=== PATIENT | male | born 1950 | race Caucasian/White ===

== ENCOUNTER 2025-03-08 13:06 | Outpatient (CLI) | payer BC ==
[2025-03-08 14:40] LABS: Hematocrit 42.5 % (38.8-50.0); Hemoglobin 14.0 g/dL (13.5-17.5); Mean Corpuscular Hemoglobin 31.0 pg (27.0-33.0); Mean Corpuscular Volume 94.2 fL (81.2-95.1); Platelet Count 243 10x3/uL (150-450); Red Blood Cell (RBC) Count 4.51 10x6/uL (4.32-5.72); White Blood Cell (WBC) Count 8.22 10x3/uL (3.5-10.5)
== END 2025-03-08 13:07 | disposition home or self-care (01) ==
LOC: CSHLAB 13:06
PROVIDERS: ATTEND Podiatrist Foot & Ankle Surgery
DX: Z01.818 Encounter for other preprocedural examination (principal); M67.471 Ganglion, right ankle and foot
CPT/HCPCS: 85027; 93005; 93010